=== PATIENT | male | born 1970 | race Caucasian/White ===

== ENCOUNTER 2019-01-12 11:06 | Observation (INO) | payer BC, OTHER ==
[2019-01-12] MEDS ORDERED: NS 1,000 ML IV ONE (11:14)
[2019-01-12] MEDS ORDERED: HEPARIN 10,000 UNIT/10 ML MDV (1,000 UNIT/ML) ONE (11:42)
[2019-01-12] MEDS ORDERED: LIDOCAINE 1% 300 MG/30 ML SDV ONE (11:42)
[2019-01-12] MEDS ORDERED: ISOPROTERENOL HCL/D5W 0.2 MG/50 ML BAG IV ONE (11:43)
[2019-01-12 11:52] LABS: PLATELET COUNT 260 10^3/uL (150-400)
--- NOTE | 2019-01-12 12:08 | PDGENHP ---
History & Physical Chief Complaint: Syncope, narrow-complex tachycardia History of Present Illness: History of near-syncope and narrow-complex tachycardia Relevant Physical Exam: General: A&Ox4, no apparent distress. Respiratory: CTA. General: Regular rate and rhythm, S1, S2. Extremities: Pulses 2+ bilaterally, no edema Cardiorespiratory Assessment: Proceed with EP study +/- loop recorder implant as planned for today
[2019-01-12] MEDS ORDERED: PROPOFOL 200 MG/20 ML VIAL ONE ×2 (12:16→14:17)
[2019-01-12] MEDS ORDERED: fentaNYL 100 MCG/2 ML INJ ONE (12:16)
[2019-01-12] MEDS ORDERED: PROPOFOL/EMULSION 500 MG/50 ML BOTTLE IV ONE ×3 (12:16→13:32)
[2019-01-12] MEDS ORDERED: DEXAMETHASONE 4 MG/ML VIAL ONE ×2 (12:21)
[2019-01-12] MEDS ORDERED: ONDANSETRON 4 MG/2 ML VIAL ONE (12:21)
[2019-01-12] MEDS ORDERED: ROCURONIUM 50 MG/5 ML VIAL ONE (12:21)
--- NOTE | 2019-01-12 12:25 | PDANEPAE ---
ANE History of Present Illness syncope and palpatations ANE Past Medical History - Cardiovascular History Hx Hypertension: No Hx Arrhythmias: Yes Hx Chest Pain: No Hx Coronary Artery / Peripheral Vascular Disease: No Hx CHF / Valvular Disease: No Hx Palpitations: Yes - Pulmonary History Hx COPD: No Hx Asthma/Reactive Airway Disease: No Hx Recent Upper Respiratory Infection: No Hx Oxygen in Use at Home: No Hx Sleep Apnea: No - Neurologic History Hx Cerebrovascular Accident: No Hx Seizures: No Hx Dementia: No Neurologic History Comment: + multiple sclerosis - Endocrine History Hx Diabetes: No Hypothyroid: No Hyperthyroid: No Obesity: no - Renal History Hx Renal Disorders: No - Liver History Hx Hepatic Disorders: No - Neurological & Psychiatric Hx Hx Neurological and Psychiatric Disorders: No ANE Review of Systems Review of systems is: negative Review of Systems: - Exercise capacity Exercise capacity: >=4 METS ANE Patient History - Allergies Allergies/Adverse Reactions: ciprofloxacin [From Cipro] Allergy (Verified 01/05/19 09:56) Rash Sulfa (Sulfonamide Antibiotics) Allergy (Verified 01/05/19 09:56) Rash/Itching - Home Medications Home medications: home medication list seen and reviewed Home Medications: Acetaminophen [Tylenol 325mg (*)] 325 mg PO Q6 PRN 01/05/19 [Last Taken 01/02/19 ] Baclofen [Baclofen 10 mg (*)] 10 mg PO HS 01/05/19 [Last Taken 01/12/19] Doxepin HCl [SINEquan 10 MG (*)] 20 mg PO HS 01/05/19 [Last Taken 01/12/19] Metoprolol Succinate Xr [Toprol Xl 25 mg (*)] 25 mg PO DAILY 01/05/19 [Last Taken 12/29/18] - NPO status NPO Status: no food or drink >8 hours - Anes Hx Anes Hx: post operative nausea and vomiting - Smoking Hx Smoking Status: Never smoked - Family Anes Hx Family Anes Hx: none ANE Labs/Vital Signs - Labs Result Diagrams: 01/12/19 11:30 01/12/19 11:30 - Vital Signs Vital Signs: reviewed preoperatively; see RN documention for details Height: 172.72 cm Weight: 77.564 kg ANE Physical Exam - Airway Neck exam: FROM Mallampati Score: Class 2 Mouth exam: normal dental/mouth exam - Pulmonary Pulmonary: no respiratory distress - Cardiovascular Cardiovascular: regular rate and rhythym - ASA Status ASA Status: II ANE Anesthesia Plan Anesthesia Plan: general endotracheal anesthesia Total IV Anesthesia: Yes
[2019-01-12 12:27] LABS: INR 0.96 (0.83-1.16)
[2019-01-12] MEDS ORDERED: PHENYLEPHRINE HCL 100 MCG/ML SYR ONE (13:25)
[2019-01-12] MEDS ORDERED: ePHEDrine SULFATE 25 MG/5 ML SYR ONE (13:28)
[2019-01-12] MEDS ORDERED: NALOXONE HCL 0.4 MG/ML INJ IVP PRN (13:50)
[2019-01-12] MEDS ORDERED: LR 500 ML IV PRN (13:50)
[2019-01-12] MEDS ORDERED: PROMETHAZINE HCL 25 MG/ML INJ IVP PRN (13:50)
[2019-01-12] MEDS ORDERED: LABETALOL HCL 5 MG/ML 20 ML MDV IVP PRN (13:50)
[2019-01-12] MEDS ORDERED: PHENYLEPHRINE HCL 100 MCG/ML SYR IVP PRN (13:50)
[2019-01-12] MEDS ORDERED: METOCLOPRAMIDE 10 MG/2 ML VIAL IVP PRN (13:50)
[2019-01-12] MEDS ORDERED: ACETAMINOPHEN 500 MG TAB PO PRN (13:50)
[2019-01-12] MEDS ORDERED: MEPERIDINE 25 MG/0.5 ML AMP IVP PRN (13:50)
[2019-01-12] MEDS ORDERED: ALBUTEROL 3 ML DEYVIAL IH PRN (13:50)
[2019-01-12] MEDS ORDERED: SUGAMMADEX SODIUM 200 MG/2 ML VIAL IVP ONE (14:07)
[2019-01-12] MEDS ORDERED: ACETAMINOPHEN 325 MG TAB PO PRN (14:31)
[2019-01-12] MEDS ORDERED: PROMETHAZINE HCL 25 MG/ML INJ IV ONE (15:00)
--- NOTE | 2019-01-12 15:12 | POSTANESTH ---
Post Anesthetic Evaluation Cardiovascular Status: Normal, Stable Respiratory Status: Normal, Stable Level of Consciousness/Mental Status: Can Participate in Eval Pain Control: Adequate, Prn Tx Ordered Nausea/Vomiting Control: Inadeq, Add Tx Reqired Complications Possibly Related to Anesthesia: None Noted
[2019-01-12] MEDS ORDERED: DOXEPIN HCL 10 MG CAP PO SCH (21:00)
[2019-01-12] MEDS ORDERED: BACLOFEN 10 MG TAB PO SCH (21:00)
[2019-01-12] MEDS ORDERED: TEMAZEPAM 15 MG CAP PO PRN (21:50)
[2019-01-13 04:35] LABS: PLATELET COUNT 292 10^3/uL (150-400)
[2019-01-13 08:12] VITALS: BP 129/90
[2019-01-13] MEDS ORDERED: METOPROLOL SUCCINATE XR 25 MG TAB PO SCH (09:00)
--- NOTE | 2019-01-13 18:19 | GDS ---
[f rep st] DISCHARGE SUMMARY SUPERVISING UNDERWEAR FINISHER: Riccardo Jerez MD ADMISSION DIAGNOSES: 1. Syncope. 2. Narrow complex tachycardia. DISCHARGE DIAGNOSES: 1. Syncope, status post implantable loop recorder and electrophysiology study without inducible sust ained arrhythmia. 2. Narrow complex tachycardia, status post electrophysiology study without inducible sustained arrhy thmia. PROCEDURES PERFORMED DURING HOSPITALIZATION: 1. Electrocardiogram. 2. Electrophysiology study. 3. Implant of a Confirm implantable loop recorder. HOSPITAL COURSE: Patient presented 01/12/2019, for an EP study in the setting of recurrent syncope a nd narrow complex tachycardia with heart rates up to 150 beats per minute. He underwent EP study wit h Dr. Riccardo Jerez without any inducible sustained arrhythmia. He subsequently underwent implant of a Confirm implantable loop recorder for ongoing monitoring of his symptoms and tachycardia. He had no intraprocedure complications and has done very well in the postprocedure setting. He is appropriate and stable for discharge home today. PHYSICAL EXAMINATION: GENERAL: He is alert and oriented x4, in no apparent distress. VITAL SIGNS: Blood pressure 129/90, heart rate 95, respiratory rate 14, SpO2 94% on room air, temp 36.6 degrees C elsius. RESPIRATORY: Lungs are clear to auscultation without adventitious breath sounds. CARDIAC: Normal S1, S2. No S3 or S4. Rhythm is regular. ABDOMEN: Normoactive bowel sounds times all 4 sirena drants. No masses or tenderness. ABDOMEN: Soft to palpation. SKIN: [place], warm, and dry without c yanosis, clubbing, or peripheral edema. EXTREMITIES: Bilateral pursestring sutures removed intact w ithout evidence of hematoma, redness, oozing, swelling, or warmth. Pulses are 2+ bilaterally. No ed dave. LABORATORY STUDIES: Drawn today demonstrates stable CBC and BMP compared to preprocedure. BNP today is 82. PROCEDURES: Electrophysiology study as mentioned above. Electrocardiogram this morning demonstrates normal sinus rhythm. DISCHARGE DISPOSITION: The patient be discharged home in stable condition, he is under activity rest rictions as below. DISCHARGE MEDICATIONS: Please see discharge medication reconciliation sheet for full details. Margy west note, the patient has been restarted on his Toprol 25 mg daily. DISCHARGE INSTRUCTIONS: Post EP study instructions reviewed with patient in detail. We discussed ac tivity restrictions, including lifting no more than 10 pounds and avoidance of submerged bathing for 10 days. He will get up and walk around every 45 minutes for 45 days. We also reviewed bleeding pre cautions, medication compliance, monitoring for signs and symptoms of infection, and monitoring for s ustained arrhythmia. He will continue aspirin for the next 6 weeks. At the time of discharge, patient verbalizes his understanding regarding all discharge instructions w ithout questions or concerns. He has a followup visit scheduled in the next 6 weeks and he will have his kosta at his implantable loop recorder incision site removed in 1 week at home in [place] . He will contact us with any new or concerning symptoms prior to his upcoming followup visit. Time spent on discharge greater than 30 minutes. /[id number]/MODL
== END 2019-01-13 12:06 | disposition home or self-care (01) ==
LOC: FCATH 11:06 → F2W 14:30
PROVIDERS: ADMIT Internal Medicine Cardiovascular Disease; ATTEND Internal Medicine Cardiovascular Disease
DX: R55 Syncope and collapse (principal); R00.2 Palpitations; Z82.49 Family history of ischemic heart disease and other diseases of the circulatory system; G35 Multiple sclerosis
CPT/HCPCS: 33285; 93620; 93621; 93623; C1730; G0378; C1731; C1764; J1100; J1644; J2370; J2405; J2550; J2704; J3010

== ENCOUNTER → 2019-01-16 | Outpatient (CLI) | payer BC | LOC: FCPNEURO 09:42 ==